=== PATIENT | female | born 1935 | race Caucasian/White ===

== ENCOUNTER 2021-04-07 20:56 | Emergency (ER) | payer MEDICARE, OTHER ==
[2021-04-07] MEDS: Lidocaine 1% 5 ML VIAL INJECT ONE (21:28)
[2021-04-07] MEDS: cefTRIAXone 1 GM Vial IM ONE (21:28)
[2021-04-07 22:14] VITALS: BP 120/51; PULSE 126
== END 2021-04-07 21:45 | disposition home or self-care (01) ==
LOC: CC.ED 20:56
DX: N39.0 Urinary tract infection, site not specified (principal); I25.10 Atherosclerotic heart disease of native coronary artery without angina pectoris; E11.9 Type 2 diabetes mellitus without complications; Z79.82 Long term (current) use of aspirin; Z79.4 Long term (current) use of insulin; Z79.899 Other long term (current) drug therapy
CPT/HCPCS: 81001; 87086; 87088; 87186; 96372; 99284; J0696